=== PATIENT | female | born 1980 | race Asian ===

== ENCOUNTER 2018-02-16 07:55 | Outpatient (CLI) | payer MEDICAID ==
--- NOTE | 2018-02-16 09:40 | ULT ---
ABDOMINAL ULTRASOUND: HISTORY: Abdominal pain. FINDINGS: There is a 3 cm simple cyst which abuts the lower margin of the liver and the upper pole of the right kidney. This cyst appears to produce some mass effect on the liver and, therefore, an exophytic cys t from the superior pole of the right kidney is favored. The liver and spleen otherwise appear unremarkable. Visualized pancreas unremarkable. Aorta and IVC are unremarkable. The kidneys are otherwise unremarkable. No hydronephrosis. Images of the gallbladder show no evidence of gallstones. The common duct is normal caliber. Gallbl adder appears normal. IMPRESSION: Evidence of an exophytic cyst from the superior pole of the right kidney measuring 3 cm. The abdomin al ultrasound is otherwise unremarkable. POS: [facility]
== END 2018-02-16 07:56 | disposition home or self-care (01) ==
LOC: ULT 07:55
PROVIDERS: ATTEND Internal Medicine Gastroenterology
DX: R10.9 Unspecified abdominal pain (principal); N28.1 Cyst of kidney, acquired
CPT/HCPCS: 76700

== ENCOUNTER 2018-02-20 11:18 | Day surgery (SDC) | payer OTHER ==
[2018-02-19 12:14] VITALS: BMI 24.0
--- NOTE | 2018-02-20 12:58 | OP ---
DATE OF PROCEDURE: 02/20/2018 SURGEON: Vivian Ramos M.D. OPERATIVE PROCEDURE: Esophagogastroduodenoscopy with biopsy. PREOPERATIVE DIAGNOSIS: Abdominal pain and nausea. POSTOPERATIVE DIAGNOSES: 1. Duodenal ulcer x2 with duodenitis. 2. Mild antral gastritis. PROCEDURE IN DETAIL: The patient was placed on her left lateral position and was given sedation by [facility] Anesthesia Department. A Pentax video gastroscope under direct vision was passed in the oropharyn x, past the GE junction, into the stomach and subsequently into the descending duodenum. The esophag eal mucosa appeared normal. The GE junction, no pathology seen. The fundus and cardia, no pathology seen. The gastric antrum and gastric body, incisura angularis, no pathology seen. The duodenal bul b shows ulceration, duodenitis. There are 3 ulcers seen. The ulcers appear shallow and probably abo ut less than 7-8 mm in size. The descending duodenum, no pathology seen. Biopsy of the gastric antr um and gastric cardia. The stomach was decompressed and the scope removed. DISCHARGE PLANNING: This is a 37-year-old female who came in for EGD because of recurrent abdominal pain with a negative abdominal sonogram. The EGD showed duodenal ulcers and antral gastritis. RECOMMENDATIONS: 1. Start patient on omeprazole 40 once a day. 2. Await gastric biopsy and decide further course of treatment.
[2018-02-20] MEDS ORDERED: PROPOFOL 200 MG/20 ML VIAL ONE (13:45)
== END 2018-02-20 13:45 | disposition home or self-care (01) ==
LOC: SDC 11:18
PROVIDERS: ATTEND Internal Medicine Gastroenterology
PROC: 0DB78ZX Excision of Stomach, Pylorus, Via Natural or Artificial Opening Endoscopic, Diagnostic (ICD-10-PCS; principal; 2018-02-20)
DX: K29.50 Unspecified chronic gastritis without bleeding (principal); K29.80 Duodenitis without bleeding; K26.9 Duodenal ulcer, unspecified as acute or chronic, without hemorrhage or perforation; I10 Essential (primary) hypertension; G43.909 Migraine, unspecified, not intractable, without status migrainosus; F41.9 Anxiety disorder, unspecified; Z79.899 Other long term (current) drug therapy
CPT/HCPCS: 88305; 88312; J2704

== ENCOUNTER 2018-05-06 12:21 | Day surgery (SDC) | payer OTHER ==
[2018-05-05 14:27] VITALS: BMI 21.8
--- NOTE | 2018-05-06 06:52 | HP ---
SHORT STAY HISTORY AND PHYSICAL DATE OF ADMISSION: 05/06/2018 HISTORY OF PRESENT ILLNESS: This is a 38-year-old [place] female diagnosed with ulcerative co litis. The patient is most likely doing well. Over the last evaluation, she has diarrhea. She is h aving about 4 or 5 stools per day. She also has mild bleeding in the stool. The patient had faintin g spell recently and was found to have severe anemia. She have seen Dr. Gaming and was given interv al iron infusions. The patient takes Lialda for ulcerative colitis. The patient was doing well unti l recently when she was having increasing frequency of stools and some hematochezia off and on. Johnson herson, her anemia seems to due more to menstrual blood loss. She has been having severe menstrual blee ding over the last several months. She also lost weight over the last several months. Her weight lo ss has almost close to about 20 pounds. Her diarrhea does not seem to get worse except she is having 5 stools per day. The patient comes in for colonoscopy because of diarrhea and weight loss and amaris tochezia and history of ulcerative colitis. ALLERGIES: None. SOCIAL HISTORY: The patient does not smoke or drink alcohol. MEDICAL ILLNESSES: 1. Ulcerative colitis. 2. Anemia. 3. History of duodenal ulcer in 02/2018 and was treated with Nexium. PHYSICAL EXAMINATION: GENERAL: Thin built, appears comfortable. VITAL SIGNS: Pulse is 70 and blood pressure 110/70. HEENT: Conjunctivae clear. CARDIOVASCULAR SYSTEM: First and second heart sounds normal. LUNGS: Clear to auscultation. ABDOMEN: Abdomen is soft. Abdomen is nontender. No organomegaly or masses. Bowel sounds normal. ADMITTING DIAGNOSIS: A 38-year-old [place] female with ulcerative colitis, history of rectal bleeding, diarrhea, weight loss. PLAN: Colonoscopy.
[~2018-05-06 12:21] MED LIST: PROPOFOL 200 MG/20 ML VIAL ONE
[2018-05-06 13:36] LABS: BHCG - Serum Negative (NEGATIVE); Pregs Control Background? CLEAR/WHITE (CLR/WHITE); Pregs Control Bar Appear? YES (CONTROL BAR)
[2018-05-06] MEDS ORDERED: HYDROcodone/Acetaminophen 5/325 mg Tablet ONE (15:27)
--- NOTE | 2018-05-07 08:43 | OP ---
DATE OF SURGERY: 05/06/2018 PROCEDURES PERFORMED: Ileocolonoscopy with biopsy. PREOPERATIVE DIAGNOSES: A 38-year-old [place] female with a history of colitis diagnosed in [place] in the past. The patient is on Lialda. The patient presents with worsening diarrhea, hematochezia and also weight loss of nearly about 17 pounds. The patient underwent colonoscopy. POSTOPERATIVE DIAGNOSES 1. Rectal mucosa and lower sigmoid colon mucosa appears fairly normal with normal vascular pattern. 2. Colitis from the sigmoid, high sigmoid all the way to the cecum and also ileal ulceration seen. The ulcer seemed to be more over the right colon than the left colon. PROCEDURE IN DETAIL: The patient was placed on her left lateral position and was given sedation by Anesthesia Department. A rectal exam was done before the scope was advanced into the rectum. No other lesion felt on rectal exam. A Pentax video colonoscope was introduced into the rectum and advanced to the cecum. The prep was good. The appendical opening, ileocecal valve, cecum seen. The scope was advanced to the terminal ileum. Ulceration was noted in the terminal ileum ,just past ileocecal valve. Biopsy was obtained of this area. The patient had ulcerations, loss of mucosal vascular pattern and mucosal edema in the cecum, ascending colon, hepatic flexure, transverse colon, splenic flexure, and descending colon and high sigmoid colon area. The lower sigmoid colon area shows mild mucosal hyperemia, but no ulcers seen. Rectum shows hypertrophic anal papilla. Biopsy was obtained of the ileum, cecum, transverse colon, sigmoid colon. DISCHARGE PLANNING: This is a 38-year-old female who came in for colonoscopy because of rectal bleeding, abdominal pain, diarrhea, and past history of colitis. She underwent colonoscopy with biopsy. RECOMMENDATIONS: 1. Continue Lialda as before. 2. We will await the stool studies and if stool study is negative, consider starting on systemic steroids. MTDD
== END 2018-05-06 16:06 | disposition home or self-care (01) ==
LOC: SDC 12:21
PROVIDERS: ATTEND Internal Medicine Gastroenterology
PROC: 0DBL8ZX Excision of Transverse Colon, Via Natural or Artificial Opening Endoscopic, Diagnostic (ICD-10-PCS; principal; 2018-05-06)
PROC: 0DBN8ZX Excision of Sigmoid Colon, Via Natural or Artificial Opening Endoscopic, Diagnostic (ICD-10-PCS; principal; 2018-05-06)
PROC: 0DBB8ZX Excision of Ileum, Via Natural or Artificial Opening Endoscopic, Diagnostic (ICD-10-PCS; principal; 2018-05-06)
PROC: 0DBH8ZX Excision of Cecum, Via Natural or Artificial Opening Endoscopic, Diagnostic (ICD-10-PCS; principal; 2018-05-06)
DX: K51.90 Ulcerative colitis, unspecified, without complications (principal); D64.9 Anemia, unspecified; R63.4 Abnormal weight loss; Z68.21 Body mass index [BMI] 21.0-21.9, adult
CPT/HCPCS: 84703; 88305; J2704

== ENCOUNTER 2018-10-06 00:38 | Emergency (ER) | payer OTHER ==
[2018-10-06 01:35] LABS: ALT (SGPT) 8 U/L (8-55); AST (SGOT) 12 U/L (5-34); Albumin 4.3 g/dL (3.5-5.0); Alkaline Phosphatase 77 U/L (40-150); Anion Gap 12 mmol/L (10-20); BUN (Urea Nitrogen) 7 mg/dL (7.0-18.7); Bilirubin, Total 0.5 mg/dL (0.2-1.2); Calc. Creatinine Clearance 0 mL/min (70-130); Calcium 9.7 mg/dL (7.8-10.44); Carbon Dioxide 25 mmol/L (22-29); Chloride 105 mmol/L (98-107); Estimated GFR-MDRD 87; Globulin 3.7 g/dL (2.4-3.5); Glucose 97 mg/dL (70-105); Potassium 3.2 mmol/L (3.5-5.1); Sodium 139 mmol/L (136-145)
[2018-10-06 02:05] LABS: BHCG - Serum Negative (NEGATIVE); Pregs Control Background? CLEAR/WHITE (CLR/WHITE); Pregs Control Bar Appear? YES (CONTROL BAR)
[2018-10-06] MEDS ORDERED: Ketorolac Tromethamine 30 MG/ML VIAL ONE (02:21)
[2018-10-06] MEDS ORDERED: Ondansetron PF 4 MG/2 ML Vial ONE (02:21)
[2018-10-06] MEDS ORDERED: Acetaminophen 500 MG TAB ONE (02:21)
--- NOTE | 2018-10-06 12:33 | CT ---
PRELIMINARY REPORT/[facility]/EMERGENTY AFTER-HOURS PROCEDURE CT Head Without Contrast EXAM DATE/TIME: 10/06/2018 2:08 AM CLINICAL HISTORY: 38 years old, female; Signs and symptoms; Numbness / parasthesia; Left; Patient HX: 38 yo female pres ents for evaluation of migraine. Patient and her state that approximately 15 minutes ago the patient "passed out" for approximately 1 minute following taking topiramate. Patient was sitting on t he couch during this episode. Patient states she had left sided numbness. Then her states juan a t her face drooped on the left side. The patient then stated she had a pain in her left chest. TECHNIQUE: Axial computed tomography images of the head/brain without contrast. COMPARISON: No relevant prior studies available. FINDINGS: Brain: Normal. No hemorrhage. No significant white matter disease. No edema. Ventricles: Normal. No ventriculomegaly. Bones/joints: Unremarkable. No acute fracture. Sinuses: Visualized sinuses are unremarkable. No acute sinusitis. Mastoid air cells: Visualized mastoid air cells are unremarkable. No mastoid effusion. Soft tissues: Unremarkable. IMPRESSION: No acute intracranial abnormality. Thank you for allowing us to participate in the care of your patient. Dictated and Authenticated by: Ian Motley MD 10/06/2018 2:30 AM Central Time ([place] & [place]) FINAL REPORT EMERGENT AFTER HOURS CT OF THE BRAIN WITHOUT CONTRAST: FINDINGS/IMPRESSION: I agree with the findings and impression given in the preliminary report per [facility] physician. No wai dence of acute intracranial abnormality. POS: [facility]
--- NOTE | 2018-10-10 19:39 | EKG ---
Test Reason : Blood Pressure : / mmHG Vent. Rate : 078 BPM Atrial Rate : 078 BPM P-R Int : 136 ms QRS Dur : 074 ms QT Int : 402 ms P-R-T Axes : 053 025 005 degrees QTc Int : 458 ms Normal sinus rhythm Normal ECG Confirmed by OFELIA BAKER ([id number]), development editor LUIS A MORA ([id number]) on 10/10/2018 7:38:45 PM Referred By: Confirmed By:OFELIA BAKER
== END 2018-10-06 03:00 | disposition home or self-care (01) ==
LOC: ERS 00:38
DX: G43.809 Other migraine, not intractable, without status migrainosus (principal); I10 Essential (primary) hypertension; F41.9 Anxiety disorder, unspecified
CPT/HCPCS: 70450; 80053; 84484; 84703; 93005; 96361; 96374; 96375; J1885; J2405

== ENCOUNTER 2022-04-29 14:17 | Outpatient (CLI) | payer OTHER | END 2022-04-29 14:18 | disposition home or self-care (01) | LOC: BICMAMMO 14:17 | PROVIDERS: ATTEND Obstetrics & Gynecology | DX: Z12.31 Encounter for screening mammogram for malignant neoplasm of breast (principal); N63.10 Unspecified lump in the right breast, unspecified quadrant | CPT/HCPCS: 77063; 77067 ==

== ENCOUNTER 2022-05-07 09:57 | Outpatient (CLI) | payer OTHER | END 2022-05-07 09:58 | disposition home or self-care (01) | LOC: BICULT 09:57 | PROVIDERS: ATTEND Obstetrics & Gynecology | DX: N63.10 Unspecified lump in the right breast, unspecified quadrant (principal) | CPT/HCPCS: G0279 ==